=== PATIENT | female | born 2000 | race Caucasian/White ===

== ENCOUNTER 2022-02-26 09:35 | Emergency (ER) | payer SELFPAY ==
[2022-02-26] MEDS ORDERED: Diphtheria,Pertussis(Acell),Tetanus Vaccine 0.5 ML Syringe IM ONE (09:56)
[2022-02-26] MEDS ORDERED: Bacitracin Oint 1 GM U/D Packet TOP ONE (09:56)
[2022-02-26] MEDS ORDERED: Lidocaine 1% PF 2 ML SDV INJECT ONE (09:56)
== END 2022-02-26 10:26 | disposition home or self-care (01) ==
LOC: MW.ED 09:35
DX: S61.412A Laceration without foreign body of left hand, initial encounter (principal); Z23 Encounter for immunization; W26.0XXA Contact with knife, initial encounter
CPT/HCPCS: 12001; 90471; 90715; 99282; 99282-25